=== PATIENT | female | born 1975 | race Caucasian/White ===

== ENCOUNTER 2018-03-18 23:34 | Emergency (ER) | payer OTHER, BC ==
[2018-03-19] MEDS: predniSONE 20 MG TAB PO (00:35)
== END 2018-03-19 01:31 | disposition home or self-care (01) ==
LOC: M ED 23:34
DX: G51.0 Bell's palsy (principal); B02.9 Zoster without complications; J45.909 Unspecified asthma, uncomplicated; Z79.899 Other long term (current) drug therapy
CPT/HCPCS: 99283